=== PATIENT | male | born 1995 | race Caucasian/White ===

== ENCOUNTER 2019-01-28 17:21 | Emergency (ER) | payer BC ==
[~2019-01-28] VITALS: Ht 175.3 cm; Wt 93.0 kg
[2019-01-28 17:27] VITALS: BP 130/73
--- NOTE | 2019-01-28 17:44 | NUR ---
PATIENT AMBULATED TO BED 5 AT THIS TIME.
--- NOTE | 2019-01-28 17:51 | NUR ---
23 Y M C/O CHEST PAIN X 5 DAYS. PAIN DESCRIBED SHARP, STABBING, 10/10. NON RADIATING. PT STATES IT WORSENS WITH DEEP BREATHING AND PHYSICAL EXERTION. [id number]. VSSS. NSR AND HR AT 82. -EDEMA. -LIGHTHEADED. BED IS DOWN, LOCKED, BED RAIL X 1, ERMD NOTIFIED OF PATIENT CONDITION. MED HX:DENIES
--- NOTE | 2019-01-28 17:52 | NUR ---
PT ON MONITOR
--- NOTE | 2019-01-28 18:30 | NUR ---
DR BAKER AT BEDSIDE
[2019-01-28 18:56] VITALS: BP 128/75
== END 2019-01-28 19:03 | disposition home or self-care (01) ==
LOC: MED 17:21
DX: R07.89 Other chest pain (principal); M25.511 Pain in right shoulder
CPT/HCPCS: 71045; 93005; 99283